=== PATIENT | female | born 1945 | race Caucasian/White ===

== ENCOUNTER → 2016-07-27 | Outpatient (CLI) | payer MEDICARE ==
--- NOTE | 2016-07-28 07:16 | ECHOCARDIOGRAPHY REPORT ---
DATE OF SERVICE: 07/27/2016 2D ECHOCARDIOGRAM REFERRING PHYSICIAN: Dr. Dey. INDICATION: Chest pain. MEASUREMENTS: LVID end diastolic 4.2. IVS thickness 1.0. LVPW thickness 1.0. Left atrial diameter 3.1. Ejection fraction is 60%. FINDINGS: 1. Technical quality is good. 2. The left ventricle is normal in size with mild left ventricular hypertrophy noted at the base of the septum, giving the septum a sigmoid shape. Systolic function appeared to be normal. The estimated ejection fraction is 60%. 3. The left atrium is normal in size. No clot or thrombus were seen within the left atrium. 4. The right atrium and right ventricle are normal in size. No clot or thrombus were seen within the right side. 5. Mitral valve is normal in morphology with mild mitral regurgitation noted by color Doppler flow. No mitral valve prolapse. No mitral valve stenosis. 6. Aortic valve is trileaflet with normal opening and closing pattern. No significant aortic stenosis or regurgitation was seen. 7. Tricuspid valve is normal in morphology with mild tricuspid regurgitation noted by color Doppler flow. Doppler across the tricuspid valve estimated pulmonary artery pressure of 17 plus right atrial pressure. 8. Pulmonic valve is functioning normally. 9. No pericardial effusion. CONCLUSION: 1. Normal left ventricular size and systolic function, estimated ejection fraction 60%. 2. Mild mitral and tricuspid regurgitation. 3. Estimated pulmonary artery pressure of 25 mmHg. Job ID: [id number] DocumentID: [id number] Dictated Date: 07/27/2016 14:48:25 [employer]ing Meter Installer Date: 07/27/2016 15:32:23 Dictated By: MANGO CALDERON MD
== END ==
LOC: CARD 07:34
PROVIDERS: ATTEND Internal Medicine Cardiovascular Disease
DX: R07.89 Other chest pain (principal); I10 Essential (primary) hypertension; R06.02 Shortness of breath; F41.9 Anxiety disorder, unspecified
CPT/HCPCS: 93306; 93351

== ENCOUNTER → 2021-11-24 | Outpatient (CLI) | payer MEDICARE, OTHER ==
--- NOTE | 2021-11-24 13:49 | Diagnostic Imaging Report ---
INDICATION: Pelvic and hip pain AP and oblique views of pelvis are obtained . Lower lumbar degenerative disc disease and degenerative facet arthropathy are again noted. Otherwise, no fracture or malalignment is identified. Sacroiliac joints are intact. No sacroiliac ankylosis is identified. IMPRESSION: No acute abnormality. Dictated by: Dictated on workstation # [id number]
--- NOTE | 2021-11-24 13:53 | Diagnostic Imaging Report ---
INDICATION: Pelvic and hip pain COMPARISON: None. FINDINGS: AP view of the pelvis and multiple dedicated radiographic views of each hip were obtained. There is no fracture, dislocation, bone destruction, or radiopaque foreign body. The visualized pelvic osseous structures and the SI joints demonstrate no acute fracture or dislocation. There is no bone destruction or radiopaque foreign body. The surrounding soft tissue structures are unremarkable. IMPRESSION: 1. Unremarkable radiographic exam of the pelvis and bilateral hips. Dictated by: Dictated on workstation # [id number]
--- NOTE | 2021-11-24 14:08 | Diagnostic Imaging Report ---
INDICATION: Back pain. COMPARISON: None FINDINGS: Frontal and lateral radiographic views of the lumbar spine were obtained. Evaluation static alignment shows mild grade 1 anterolisthesis at L3-L4 and L4-L5 as well as mild grade 1 retrolisthesis at L5-S1. There is no evidence of jumped facets. Vertebral body heights are maintained. There is no evidence of acute fracture. Moderate multilevel degenerative changes are noted and appear greatest at the L4-L5 and L5-S1 levels. Included small bowel loops are nondistended. There is scattered calcified aortic atherosclerosis. IMPRESSION: 1. No acute fracture or dislocation of the lumbar spine. 2. Moderate multilevel degenerative changes. Dictated by: Dictated on workstation # [id number]
== END ==
LOC: RAD 12:52
PROVIDERS: ATTEND Family Medicine
DX: M47.816 Spondylosis without myelopathy or radiculopathy, lumbar region (principal)
CPT/HCPCS: 72100; 72202; 73523

== ENCOUNTER → 2022-02-16 | Outpatient (RCR) | payer MEDICARE, OTHER | END | disposition still patient (30) | PROVIDERS: ATTEND Orthopaedic Surgery | DX: M25.551 Pain in right hip (principal); M54.50 Low back pain, unspecified ==

== ENCOUNTER 2022-03-18 09:45 | Outpatient (RCR) | payer MEDICARE, OTHER | END 2022-03-19 | disposition home or self-care (01) | PROVIDERS: ATTEND Orthopaedic Surgery | DX: M54.50 Low back pain, unspecified (principal); M25.551 Pain in right hip; I10 Essential (primary) hypertension ==

== ENCOUNTER 2022-04-18 08:32 | Outpatient (RCR) | payer MEDICARE, OTHER | END 2022-04-19 | disposition home or self-care (01) | PROVIDERS: ATTEND Orthopaedic Surgery | DX: M54.50 Low back pain, unspecified (principal); M25.551 Pain in right hip; I10 Essential (primary) hypertension ==

== ENCOUNTER → 2022-05-17 | Outpatient (RCR) | payer MEDICARE, OTHER | END | disposition home or self-care (01) | PROVIDERS: ATTEND Orthopaedic Surgery | DX: M54.50 Low back pain, unspecified (principal); I10 Essential (primary) hypertension; M25.559 Pain in unspecified hip ==

== ENCOUNTER 2022-05-27 08:18 | Outpatient (RCR) | payer MEDICARE, OTHER | END 2022-05-27 08:55 | disposition home or self-care (01) | PROVIDERS: ATTEND Orthopaedic Surgery | DX: M54.50 Low back pain, unspecified (principal); M25.551 Pain in right hip; I10 Essential (primary) hypertension ==

== ENCOUNTER 2022-09-12 09:41 | Outpatient (RCR) | payer MEDICARE, OTHER | END 2022-09-16 | disposition home or self-care (01) | PROVIDERS: ATTEND Orthopaedic Surgery | DX: M25.551 Pain in right hip (principal); M54.50 Low back pain, unspecified; I10 Essential (primary) hypertension ==

== ENCOUNTER 2022-09-30 14:14 | Outpatient (RCR) | payer MEDICARE, OTHER | END 2022-09-30 17:00 | disposition home or self-care (01) | PROVIDERS: ATTEND Orthopaedic Surgery | DX: M25.551 Pain in right hip (principal); M54.50 Low back pain, unspecified; I10 Essential (primary) hypertension ==